=== PATIENT | male | born 2000 | race Caucasian/White ===

== ENCOUNTER 2019-09-07 23:20 | Emergency (ER) | payer MEDICAID, SELFPAY ==
[2019-09-07 23:28] VITALS: BP 155/71; PULSE 71; RESP 14; TEMP 37.4; O2SAT 99; BMI 25.8
--- NOTE | 2019-09-07 23:32 | CT_ITS ---
PROCEDURE: CT ABDOMEN PELVIS W CON CLINICAL INDICATION: abdominal pain Epigastric pain, generalized abdominal pain with nausea COMPARISON: ABDPELW CT ABD PELVIS WITH CONTRAST from 05/17/2010 TECHNIQUE: IV Contrast: 75ML OPTIRAY 350 Oral Contrast 20ml Gastroview Axial images obtained with sagittal and coronal reformats. All CT scans at the facility use one or more dose reduction, viz: automated exposure control, ma/kV adjustment per patient size (including targeted exams where dose is matched to indication, i.e. head), or iterative reconstruction technique. FINDINGS: LOWER THORAX: No acute finding ABDOMEN & PELVIS: The liver, gallbladder, spleen, adrenal glands, pancreas, and kidneys have an unremarkable appearance. No renal or ureteral calculi. There has been a prior appendectomy. No intestinal obstruction or free air. No pelvic mass or abnormal fluid collection. No acute bony anomaly. There are few scattered small nodes in the abdomen and right lower quadrant in the inguinal regions. IMPRESSION: The no acute finding. Dictated by: Jose F Ayon MD 09/08/2019 10:56 Electronically signed by Jose F Ayon MD in [place] 09/08/2019 10:56
[2019-09-07 23:39] LABS: Microscopic, Urine URINE MICROSCOPIC (MICROSCOPIC)
[2019-09-07 23:40] LABS: Appearance,Urine CLEAR (Clear); Basophils # 0.3 K/mm3 (0-0.2); Basophils % 2.7 % (0.1-2.0); Bilirubin,Urine Negative (Negative); Blood, Urine Negative (Negative); Color,Urine YELLOW (Yellow); Eosinophils # 0.2 K/mm3 (0.0-0.4); Eosinophils % 1.9 % (0.1-12.0); Glucose,Urine (UA) Negative (Negative); Hematocrit 47.7 % (42.0-52.0); Hemoglobin 16.3 g/dL (14.1-18.0); Ketones,Urine Negative (Negative); Leukocyte Esterase,Urine Negative (Negative); Lymphocytes % 19.2 % (10-50); Mean Corpuscular HGB Conc 34.1 g/dL (31.8-35.4); Mean Corpuscular Hemoglobin 31.9 pg (27.0-31.2); Mean Corpuscular Volume 93.4 fl (80-94); Mean Platelet Volume 7.8 fl (7.4-10.4); Monocytes # 0.5 K/mm3 (0.1-1.0); Monocytes % 4.7 % (1.7-9.3); Neutrophils # 7.6 K/mm3 (1.8-7.8); Neutrophils % 71.5 % (37.0-80.0); Nitrate,Urine Negative (Negative); Platelet Count 209 K/mm3 (142-424); Protein,Urine Negative (Negative); Red Blood Count 5.11 M/mm3 (4.60-6.20); Red Cell Distribution Width 12.8 % (11.5-17.5); Urobilinogen,Urine 0.2 EU/dl (0.2); White Blood Count 10.6 K/mm3 (4.5-13.0)
[2019-09-07 23:42] LABS: Chloride 102 mmol/L (98-107); Potassium 4.3 mmoL/L (3.5-5.1); Sodium 138 mmol/L (136-145)
[2019-09-07 23:44] LABS: Amylase 68 U/L (30-110)
[2019-09-07 23:45] LABS: Alanine Aminotransferase 22 U/L (12-78); Albumin Level 4.8 g/dl (3.5-5.0); Albumin/Globulin Ratio 1.5 (1.1-1.8); Alkaline Phosphatase 74 U/L (38-126); Anion Gap 13.3 mEq/L (5-15); Aspartate Amino Transferase 32 U/L (17-59); Blood Urea Nitrogen 12 mg/dl (9-20); Calcium 9.3 mg/dl (8.4-10.2); Carbon Dioxide 27 mmol/L (22.0-30.0); Creatinine Clearance Estimated 151 mL/min (50-200); Estimated Glomerular Filt Rate 108 ml/min (>60); GFR (African American) 130 ML/MIN (>60); Globulin 3.1 g/dL (1.3-3.2); Glucose 98 mg/dl (74-100); Lipase 84 U/L (23-300); Total Protein,Serum 7.9 g/dl (6.3-8.2)
[2019-09-07 23:46] LABS: Bacteria,Urine Trace /lpf; RBC,Urine Occasional #/hpf (0-3)
--- NOTE | 2019-09-08 00:18 | [facility].EDNVD ---
ED Disposition Clinical Impression: Abdominal pain Qualifiers: Abdominal location: epigastric Qualified Code(s): R10.13 - Epigastric pain Disposition: Home, Self-Care Condition on Discharge: Good Instructions: DI for Acute Abdomen Additional Instructions: see pcp for follow up Referrals: Provider,Referral, [Primary Care Provider] - - Critical Care Critical Care Time: No Attestation: On 09/07/19, the high probability of a clinically significant, sudden or life threatening deterioration of the following system(s) required my full and direct attention, intervention and personal management. The time I documented below is in addition to time spent performing reported procedures but includes the following listed in this critical care notation. Medical Decision Making - Medical Records Medical records reviewed: Yes: I reviewed the patient's medical records. - [place] Inquiry Pt receiving controlled substance: No Vital Signs: 09/07/19 23:28 09/08/19 00:20 Temperature 99.4 F Temperature Source Oral Pulse Rate [Right Brachial] 71 69 Respiratory Rate 14 14 Blood Pressure [Right Arm] 155/71 H 136/68 Blood Pressure Mean [Right Arm] 99 90 Blood Pressure Source [Right Arm] Automatic Cuff Automatic Cuff Blood Pressure Position [Right Arm] Sitting Sitting 02 Sat by Pulse Oximetry 99 100 Oxygen Delivery Method Room Air Room Air - Lab Data Lab results reviewed: Yes: I reviewed the patient's lab results. Lab Results 09/07/19 23:31: Urine Color Yellow, Urine Appearance Clear, Urine pH 7.0, Ur Specific [place] 1.020, Urine Protein Negative, Urine Glucose (UA) Negative, Urine Ketones Negative, Urine Blood Negative, Urine Nitrate Negative, Urine Bilirubin Negative, Urine Urobilinogen 0.2, Ur Leukocyte Esterase Negative, Urine RBC Occasional, Urine Bacteria Trace 09/07/19 23:31: WBC 10.6, RBC 5.11, Hgb 16.3, Hct 47.7, MCV 93.4, MCH 31.9 H, MCHC 34.1, RDW 12.8, Plt Count 209, MPV 7.8, Neut % (Auto) 71.5, Lymph % (Auto) 19.2, [place] % (Auto) 4.7, Eos % (Auto) 1.9, Baso % (Auto) 2.7 H, Neut # (Auto) 7.6, Lymph # (Auto) 2.0, [place] # (Auto) 0.5, Eos # (Auto) 0.2, Baso # (Auto) 0.3 H 09/07/19 23:31: Sodium 138, Potassium 4.3, Chloride 102, Carbon Dioxide 27, Anion Gap 13.3, BUN 12, Creatinine 0.90, Estimated Creat Clear 151, Estimated GFR 108, Est GFR ( Amer) 130, Glucose 98, Calcium 9.3, Total Bilirubin 1.0, AST 32, ALT 22, Alkaline Phosphatase 74, Total Protein 7.9, Albumin 4.8, Globulin 3.1, Albumin/Globulin Ratio 1.5, Amylase 68, Lipase 84 Result diagrams: 09/07/19 23:31 09/07/19 23:31 Orders (Tests/Meds): ED MEDICATIONS Generic Name Dose Route Start Last Admin Trade Name Freq PRN Reason Stop Dose Admin Sodium Chloride 1,000 mls @ 999 mls/hr 09/07/19 23:45 09/07/19 23:52 Sod Chlor 0.9% 1000ml Bag IV 09/08/19 00:45 999 mls/hr .Q1H1M DEN Administration Sodium Chloride 8 ml 09/07/19 23:35 Sodium Chloride 0.9% 10ml Vial IV 10/07/19 23:34 NEEDED PRN dilute pepcid Discontinued Medications Generic Name Dose Route Start Last Admin Trade Name Freq PRN Reason Stop Dose Admin Famotidine 20 mg 09/07/19 23:35 09/07/19 23:51 Pepcid 20mg/2ml Vial IV 09/07/19 23:36 20 mg ONCE ONE Administration Ketorolac Tromethamine 30 mg 09/07/19 23:35 09/07/19 23:51 Toradol 30mg/Ml Vial IV 09/07/19 23:36 30 mg ONCE ONE Administration Metoclopramide HCl 10 mg 09/07/19 23:35 09/07/19 23:51 Reglan 10mg/2ml Vial IVP 09/07/19 23:36 10 mg ONCE ONE Administration Ondansetron HCl 4 mg 09/07/19 23:35 09/07/19 23:51 Zofran 4mg/2ml Vial IV 09/07/19 23:36 4 mg ONCE ONE Administration ORDERS Category Date Time Status CT abdomen pelvis w con Stat Cat Scan 09/07/19 23:32 Ordered - CT Data CT Scan: Abdomen, Pelvis Time Received: 00:[address] Reviewed: Yes: I have viewed the radiologist's interpretation Preliminary Findings: Normal/NAD - Reevaluation(s)
[2019-09-08 00:20] VITALS: BP 136/68; PULSE 69; RESP 14; O2SAT 100
[2019-09-08 01:00] VITALS: BP 123/70; PULSE 63; RESP 17; TEMP 36.6; O2SAT 99
== END 2019-09-08 01:02 | disposition home or self-care (01) ==
PROVIDERS: Emergency Provider Emergency Medicine
DX: R10.13 Epigastric pain (principal); R11.0 Nausea; F17.210 Nicotine dependence, cigarettes, uncomplicated
CPT/HCPCS: 74177; 80053; 81001; 82150; 83690; 85025; 96365; 96375; 99283; J2405

== ENCOUNTER 2024-09-15 15:14 | Outpatient (CLI) | payer MEDICAID, SELFPAY ==
--- NOTE | 2024-09-15 15:17 | XR_ITS ---
FINAL REPORT CLINICAL HISTORY: cough/congestion FINDINGS: 2 views of the chest were obtained . The heart is normal in size. The mediastinum is within normal limits. The lungs are clear. There is no pneumothorax. Osseous structures are unremarkable. IMPRESSION: No acute cardiopulmonary process. Reviewed, Interpreted and Dictated by Henny Frost MD Transcribed by Leesa Whittington Authenticated and . [facility]
== END 2024-09-15 23:59 | disposition home or self-care (01) ==
LOC: RAD 15:15
PROVIDERS: Visit Provider Nurse Practitioner
DX: R09.89 Other specified symptoms and signs involving the circulatory and respiratory systems (principal); R05.9 Cough, unspecified
CPT/HCPCS: 71046